=== PATIENT | female | born 1985 | race Caucasian/White ===

== ENCOUNTER 2019-05-21 13:13 | Outpatient (REF) | payer MEDICAID, SELFPAY ==
[2019-05-21 21:36] LABS: HCT 43.1 % (36.0-46.0); HGB 14.7 g/dL (12.0-15.5); Mean Corp. HGB Concentration 34.1 g/dL (32.0-36.0); Mean Corpuscular Hemoglobin 29.8 pg (27.0-33.0); Mean Corpuscular Volume 87.2 fL (80-95); Mean Platelet Volume 11.8 fL (8.0-11.0); Platelet Count 262 x1000/uL (130-400); RBC 4.94 m/cumm (4.00-5.20); White Blood Cell Count 5.69 k/cumm (4.4-10.8)
[2019-05-21 21:51] LABS: Hemoglobin A1C 5.4 % (4.5-6.2)
[2019-05-21 21:52] LABS: COMMENT (LAB VIEW ONLY) 103.12 mg/dL; Microalb ug/mg Crea 7.2 ug/mg Cr
[2019-05-21 21:59] LABS: ALT 22 U/L (14-59); AST 11 U/L (15-37); Albumin 3.8 g/dL (3.4-5.0); Alkaline Phosphatase 85 U/L (46-116); Anion Gap 12.2 mmol/L (3-11); BUN 10 mg/dL (7-18); Bilirubin, Total 0.3 mg/dL (0.2-1.0); CO2 23.8 mmol/L (21.0-32.0); CREATININE 0.88 mg/dL (0.55-1.02); Calcium 8.8 mg/dL (8.5-10.1); Calculated LDL 69 mg/dL; Chloride 107 mmol/L (98-107); Cholesterol 122 mg/dL (50-200); Glucose 96 mg/dL (70-100); HDL Cholesterol 36 mg/dL (40-60); Potassium 4.1 mmol/L (3.5-5.1); Sodium 143 mmol/L (136-145); Total Protein 6.9 g/dL (6.4-8.2); Triglyceride 89 mg/dL (30-150)
== END 2019-05-21 13:33 ==
LOC: NCHCN 13:13
PROVIDERS: PCP Nurse Practitioner Family; Visit Provider Nurse Practitioner Family
DX: I10 Essential (primary) hypertension (principal); R53.83 Other fatigue; G43.909 Migraine, unspecified, not intractable, without status migrainosus; E66.9 Obesity, unspecified; Z13.1 Encounter for screening for diabetes mellitus; Z13.220 Encounter for screening for lipoid disorders
CPT/HCPCS: 80053; 80061; 85027; 82043; 82570; 83036; 84443

== ENCOUNTER 2019-06-22 16:16 | Outpatient (REF) | payer MEDICAID, SELFPAY ==
[2019-06-22 21:33] LABS: Anion Gap 10.9 mmol/L (3-11); BUN 9 mg/dL (7-18); CO2 28.1 mmol/L (21.0-32.0); CREATININE 0.79 mg/dL (0.55-1.02); Calcium 9.3 mg/dL (8.5-10.1); Chloride 101 mmol/L (98-107); Glucose 74 mg/dL (70-100); Potassium 3.7 mmol/L (3.5-5.1); Sodium 140 mmol/L (136-145)
== END 2019-06-22 16:36 ==
LOC: NCHCN 16:16
PROVIDERS: PCP Nurse Practitioner Family; Visit Provider Nurse Practitioner Family
DX: R55 Syncope and collapse (principal); I10 Essential (primary) hypertension
CPT/HCPCS: 80048

== ENCOUNTER 2020-08-04 12:24 | Outpatient (REF) | payer SELFPAY ==
[2020-08-07 12:40] LABS: SARS-CoV-2 RNA Not Detected (NotDetected); SARS-CoV-2 RNA Source Nasal/Nares
== END 2020-08-04 12:44 ==
LOC: NCHCN 12:24
PROVIDERS: PCP Nurse Practitioner Family; Visit Provider Nurse Practitioner Family
DX: Z20.828 Contact with and (suspected) exposure to other viral communicable diseases (principal)
CPT/HCPCS: U0003

== ENCOUNTER 2021-04-18 16:13 | Outpatient (REF) | payer MEDICAID, SELFPAY ==
[2021-04-20 14:41] LABS: COVID-19 RT-PCR UVMMC Result Negative (Negative)
== END 2021-04-18 16:14 | disposition home or self-care (01) ==
LOC: NCHCN 16:13
PROVIDERS: PCP Nurse Practitioner Family; Visit Provider Nurse Practitioner Family
DX: Z20.822 Contact with and (suspected) exposure to COVID-19 (principal)
CPT/HCPCS: U0003

== ENCOUNTER 2021-10-15 14:44 | Outpatient (REF) | payer MEDICAID, SELFPAY ==
[2021-10-15 15:09] LABS: BUN 15 mg/dL (7-18); CREATININE 0.9 mg/dL (0.55-1.02); Calcium 8.8 mg/dL (8.5-10.1); Chloride 99 mmol/L (98-107); Glucose 81 mg/dL (74-106); Sodium 136 mmol/L (136-145)
[2021-10-15 15:14] LABS: Hemoglobin A1C 5.4 % (<5.7)
== END 2021-10-15 14:45 | disposition home or self-care (01) ==
LOC: NCHCN 14:44
PROVIDERS: PCP Nurse Practitioner Family; Visit Provider Nurse Practitioner Family
DX: I10 Essential (primary) hypertension (principal); E66.9 Obesity, unspecified; Z13.1 Encounter for screening for diabetes mellitus
CPT/HCPCS: 80048; 83036

== ENCOUNTER 2023-02-24 10:12 | Outpatient (REF) | payer MEDICAID, SELFPAY ==
[2023-02-24 16:03] LABS: BUN 12 mg/dL (7-18); CREATININE 0.9 mg/dL (0.55-1.02); Calcium 8.9 mg/dL (8.5-10.1); Calculated LDL 76 mg/dL (<100); Chloride 104 mmol/L (98-107); Cholesterol 141 mg/dL (<200); Glucose 84 mg/dL (74-106); HDL Cholesterol 53 mg/dL (40-60); Potassium 3.9 mmol/L (3.5-5.1); Sodium 139 mmol/L (136-145); Triglyceride 64 mg/dL (<150)
[2023-02-24 16:05] LABS: Hemoglobin A1C 5.1 % (<5.7)
[2023-02-26 09:54] LABS: Hepatitis C Ab w Rflx HCV PCR Negative (Negative)
== END 2023-02-24 10:13 | disposition home or self-care (01) ==
LOC: NCHCN 10:12
PROVIDERS: PCP Nurse Practitioner Family; Visit Provider Nurse Practitioner Family
DX: I10 Essential (primary) hypertension (principal); F32.89 Other specified depressive episodes; G43.009 Migraine without aura, not intractable, without status migrainosus; B00.89 Other herpesviral infection; Z11.59 Encounter for screening for other viral diseases; Z13.1 Encounter for screening for diabetes mellitus
CPT/HCPCS: 80048; 80061; 86803; 83036

== ENCOUNTER 2024-05-25 01:18 | Outpatient (CLI) | payer OTHER, MEDICAID, SELFPAY ==
--- NOTE | 2024-05-25 | DI.MAMMO_ITS ---
Exam(s) MAMMO SCREENING EXAM: MAMMO SCREENING CLINICAL HISTORY: Z12.39 Breast CA screening TECHNIQUE: Bilateral full field digital CC and MLO mammographic images were obtained with 3D tomosyn thesis and utilizing computer aided detection (CAD). COMPARISON: Available for comparison. FINDINGS: Masses/Architectural Distortion: None seen. Microcalcifications: No suspicious pleomorphic-type are seen. Skin Thickening/Nipple Retraction: None. IMPRESSION: 1. No significant interval change with no specific features of malignancy noted. 2. Unless there is more urgent need, screening mammography is recommended, as per [employer] guidelines. BI-RADS Category 1 - Negative Breast Density - Category C - Heterogeneously dense Breast density category C or D implies that the patient has dense breast tissue. Dense breast tissue is very common and is not abnormal but dense breast tissue can make it harder to find cancer on a ma mmogram. Also, dense breast tissue may increase their breast cancer risk. This information about the result of the mammogram report was provided to the patient to raise their awareness. Use this report when you speak with the patient about their risks for breast cancer, which includes their family hist ory. At that time, you may recommend for more screening tests (Ultrasound or MRI) as they might be us eful based on their risk. A negative radiographic report should not delay biopsy if a dominant or clinically suspicious mass is present. Up to ten percent of cancers are not identified on mammography. A negative report may reinforce clinical impression. Adenosis and dense breasts may obscure an underlying neoplasm. False positive reports average 6 to 10%. Patient will receive a letter notifying them of these results.
== END 2024-05-25 01:38 ==
PROVIDERS: PCP Nurse Practitioner Family; Visit Provider Nurse Practitioner Family
DX: Z12.31 Encounter for screening mammogram for malignant neoplasm of breast (principal)
CPT/HCPCS: 77063; 77067

== ENCOUNTER 2024-06-08 14:40 | Outpatient (REF) | payer OTHER, MEDICAID, SELFPAY ==
--- OUTSIDE RECORDS SUMMARY | 2024-06-08 14:41 | XMS_ITS ---
Author Organization Unknown Address [address] [place] [address] [phone] Phone Care Team Providers Care Legal Records Manager Name Role Phone GLOSS SELENE Moise Attending Unavailable Results CHLAMYDIA/GC AMPLIFIED PROBE * - Collect Date/Time: 09/19/2021 11:45 [facility] ID: [id number] [address] [place] [address], [id number] LOINC: 36656-0 Test Value Unit Reference Range Code Code System Flag Chlamydia Result Negative Negative GC Result Negative Negative HEP C ANTIBODY WITH REFLEX P CR - Collect Date/Time: 09/19/2021 10:05 [facility] ID: [id number] [address] [place] [address], [id number] LOINC: 38878-3 Test Value Unit Reference Range Code Code System Flag Hep C Ab w Rfx PCR Negative Negative HEP B SURF ANTIGEN* - Collec t Date/Time: 09/19/2021 10:05 [facility] ID: [id number] [address] [place] [address], [id number] LOINC: 5196-1 Test Value Unit Reference Range Code Code System Flag Hep B Surface Ag Negative Negative Social History Type Status Start Date End Date Code Code Syst em Smoking History Former smoker 09/22/[id number] Sex Female Hospital Discharge Instructions Should you have any questions prior to discharge, please contact a member of your healthcare team. If you have left the hospital and have any questions, please contact your primary care physician. Reason For Referral No Data Found Allergies and Adverse Reactions Allergy Substance Reaction Severity Start Date Concern Status Co de Code System No Known Allergies Moderate Active [id number] SN OMED-CT Plan of Treatment No Data Found Encounters Encounter Diagnosis Start Date Code Code Sys tem Encounter for screening for infections with a predominantly sexual mode of transmission 09/19/2021 SNOMED-CT Personal Care Team Section Performer Name Performer Role Active Date Inactive Da te
--- OUTSIDE RECORDS SUMMARY | 2024-06-08 14:42 | XMS_ITS ---
Author Organization Unknown Address [address] [place] [address] [phone] Phone Care Team Providers Care Credit Control Assistant Name Role Phone EDER Bethea Attending Unavailable Results HEP C ANTIBODY WITH REFLEX P CR - Collect Date/Time: 03/19/2023 09:45 [facility] ID: [id number] [address] [place] [address], [phone] LOINC: 51161-6 Test Value Unit Reference Range Code Code System Flag Hep C Ab w Rfx PCR Negative Negative HEP B SURF ANTIGEN* - Collec t Date/Time: 03/19/2023 09:45 [facility] ID: [id number] [address] [place] [address], [id number] LOINC: 5196-1 Test Value Unit Reference Range Code Code System Flag Hep B Surface Ag Negative Negative SYPHILIS SEROLOGY* - Collect Date/Time: 03/19/2023 09:45 [facility] ID: [id number] [address] [place] [address], [id number] LOINC: 80810-4 Test Value Unit Reference Range Code Code System Flag Syphilis Serology Negative Negative HIV 1/2 ANTIGEN AND ANTIBODY SCREEN - Collect Date/Time: 03/19/2023 09:45 [facility] ID: [id number] [address] [place] [address], [id number] LOINC: 05300-6 Test Value Unit Reference Range Code Code System Flag HIV 1/2 Antigen andAntibody Negative Negative Social History Type Status Start Date End Date Code Code Syst em Smoking History Former smoker 09/22/[id number] Sex Female Hospital Discharge Instructions [...] Code System No Known Allergies Moderate Active 199001148 SN OMED-CT Plan of Treatment No Data Found Encounters Encounter Diagnosis Start Date Code Code Sys tem Venereal disease screening 03/19/2023 [id number] S NOMED-CT Personal Care Team Section Performer Name Performer Role Active Date Inactive Da te
--- OUTSIDE RECORDS SUMMARY | 2024-06-08 14:42 | XMS_ITS ---
Author Organization Unknown Address [address] [place] [address] [phone] Phone Care Team Providers Care Bike Assembler Name Role Phone DECEMBER Attending Unavailable Results SYPHILIS SEROLOGY* - Collect Date/Time: 11/14/2022 14:52 [facility] ID: [id number] [address] [place] [address], [id number] LOINC: 95410-0 Test Value Unit Reference Range Code Code System Flag Syphilis Serology Negative Negative HEP C ANTIBODY WITH REFLEX P CR - Collect Date/Time: 11/14/2022 14:52 [facility] ID: [id number] [address] [place] [address], [id number] LOINC: 44848-8 Test Value Unit Reference Range Code Code System Flag Hep C Ab w Rfx PCR Negative Negative HEP B SURF ANTIGEN* - Collec t Date/Time: 11/14/2022 14:52 [facility] ID: [id number] [address] [place] [address], [id number] LOINC: 5196-1 Test Value Unit Reference Range Code Code System Flag Hep B Surface Ag Negative Negative HIV 1/2 ANTIGEN AND ANTIBODY SCREEN - Collect Date/Time: 11/14/2022 14:52 [facility] ID: [id number] [address] [place] [address], [id number] LOINC: 56062-7 Test Value Unit Reference Range Code Code System Flag HIV 1/2 Antigen andAntibody Negative Negative HERPES SIMPLEX VIRUS BY PCR* - Collect Date/Time: 11/14/2022 14:45 [facility] ID: [id number] [address], [place], [id number] LOINC: 35760-7 Test Value Unit Reference Range Code Code System Flag HSV 1 DNA Result Negative Negative 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 A CHLAMYDIA/GC AMPLIFIED PROBE * - Collect Date/Time: 11/14/2022 14:45 [facility] ID: [id number] [address], [place], [phone] LOINC: 14728-3 Test Value Unit Reference Range Code Code System Flag Chlamydia Result Negative Negative GC Result Negative Negative Social History Type Status Start Date End Date Code Code Syst em Smoking History Former smoker 09/22/[id number] Sex Female Hospital Discharge Instructions [...] Code System No Known Allergies Moderate Active 475926952 SN OMED-CT Plan of Treatment No Data Found Encounters Encounter Diagnosis Start Date Code Code Sys tem Encounter for screening for infections with a predominantly sexual mode of transmission 11/14/2022 SNOMED-CT Personal Care Team Section Performer Name Performer Role Active Date Inactive Da te
--- OUTSIDE RECORDS SUMMARY | 2024-06-08 14:42 | XMS_ITS | Referral Summary ---
Author Organization [facility] Address [address] [place] [address] Care Team Providers Care Fourdrinier Machine Tender Name Role Phone Marcy Hines MD Primary Care Provider Social History Tobacco Use Types Packs/Day Years Used Date Smoking Tobacco: Never Assessed Sex and Gender Information Value Date Recorded Sex Assigned at Not on file Gender Identity Not on file Sexual Orientation Not on file Plan of Treatment Not on file Procedures Procedure Name Priority Date/Time Associated Diagnosis Comments HEPATITIS C AB W REFLEX TO HCV RNA BY PCR Routine 03/19/2023 9:45 EDT from Last 3 Months or Most Recently Relevant to Health Maintenance Results * HEPATITIS C AB W REFLEX TO HCV RNA BY PCR (03/19/2023 9:45 EDT) Hep C Antibody Negative Negative 03/20/2023 11:53 EDT [facility] Blood VENOUS BLOOD / Unknown 03/19/2023 9:45 EDT 03/19/2023 17:25 EDT Provider Outr Resulting Lab CHEMISTRY & BLOOD GAS ORDERABLES [facility] [address] [place] [address] from Last 3 Months or Most Recently Relevant to Health Maintenance Care Teams Fourdrinier Machine Tender Relationship Specialty Start Date End Date Marcy Hines MD PCP - General 03/03/12
--- OUTSIDE RECORDS SUMMARY | 2024-06-08 14:42 | XMS_ITS ---
Author Organization Unknown Address [address] [place] [address] [phone] Phone Care Team Providers Care Torpedo Man Name Role Phone ANAY Moise Attending Unavailable Social History Type Status Start Date End Date Code Code Syst em Smoking History Former smoker 09/22/[id number] Sex Female Hospital Discharge Instructions [...] Code System No Known Allergies Moderate Active 279000829 SN OMED-CT Plan of Treatment No Data Found Encounters Encounter Diagnosis Start Date Code Code Sys tem Gynecologic examination 05/17/2024 87597960 SNOM ED-CT Personal Care Team Section Performer Name Performer Role Active Date Inactive Da te
--- OUTSIDE RECORDS SUMMARY | 2024-06-08 14:42 | XMS_ITS | Clinical Summary ---
Author Organization [facility] Address [address] [place] [address] Care Team Providers Care Oyster Grower Name Role Phone Marcy Hines MD Primary Care Provider [phone] Social History Tobacco Use Types Packs/Day Years Used Date Smoking Tobacco: Never Assessed Sex and Gender Information Value Date Recorded Sex Assigned at Not on file Gender Identity Not on file Sexual Orientation Not on file Plan of Treatment Health Maintenance Due Date Last Done Comments Hepatitis B Vaccine (1 of 3 - 19+ 3-dose series) 2002 COVID-19 Vaccine (2022-2 4 season) 2023 Hepatitis C Screen Completed 03/19/2023, 0 02/24/2023, 11/14/2022, Additional history exists Procedures Procedure Name Priority Date/Time Associated Diagnosis Comments HEPATITIS C AB W REFLEX TO HCV RNA BY PCR Routine 03/19/2023 9:45 EDT from Last 3 Months or Most Recently Relevant to Health Maintenance Results * HEPATITIS C AB W REFLEX TO HCV RNA BY PCR (03/19/2023 9:45 EDT) Hep C Antibody Negative Negative 03/20/2023 11:53 EDT [facility] Blood VENOUS BLOOD / Unknown 03/19/2023 9:45 EDT 03/19/2023 17:25 EDT Provider Outr Resulting Lab CHEMISTRY & BLOOD GAS ORDERABLES [facility] [address] [place] [address] from Last 3 Months or Most Recently Relevant to Health Maintenance Care Teams Oyster Grower Relationship Specialty Start Date End Date Marcy Hines MD PCP - General 03/03/12
--- OUTSIDE RECORDS SUMMARY | 2024-06-08 14:43 | XMS_ITS | Encounter Summary ---
Author Organization [facility] Address [address] [place] [address] Care Team Providers Care Elementary Vocal Music Teacher Name Role Phone Marcy Hines MD Primary Care Provider [phone] Encounter Details Date Type Department Care Team (Late st Contact Info) Description 03/19/2023 Lab Requisition [facility] Pathology & Laboratory Medicine - [address] [address] Outr Resulting Lab, Provider Social History Tobacco Use Types Packs/Day Years Used Date Smoking Tobacco: Never Assessed Sex and Gender Information Value Date Recorded Sex Assigned at Not on file Gender Identity Not on file Sexual Orientation Not on file documented as of this encounter Plan of Treatment Not on file documented as of this encounter Procedures Procedure Name Priority Date/Time Associated Diagnosis Comments CHLAMYDIA/N. GONORRHOEAE AMPLIFIED NUCLEIC ACID Routine 03/19/2023 9:45 EDT documented in this encounter Results * CHLAMYDIA/N. GONORRHOEAE AMPLIFIED RNA (03/19/2023 9:45 EDT) Neisseria gonorrhoeae Result Negative Negative 03/20/2023 12:12 EDT [facility] Chlamydia trachomatis Result Negative Negative 03/20/2023 12:12 EDT [facility] Urine URINE / Unknown 03/19/2023 9 :45 EDT 03/19/2023 17:23 EDT Narrative [facility] - 03/20/2023 12:12 EDT A first catch urine specimen is acceptable for detection of Gonorrhea and Chlamydia, but might detect up to 10% fewer infections when compared with vaginal and endocervical swab samples. Provider Outr Resulting Lab MICROBIOLOGY - GENERAL ORDERABLES [facility] [address] [place] [address] documented in this encounter Visit Diagnoses Not on filedocumented in this encounter Care Teams Elementary Vocal Music Teacher Relationship Specialty Start Date End Date Marcy Hines MD PCP - General 03/03/12 documented as of this encounter
--- OUTSIDE RECORDS SUMMARY | 2024-06-08 14:43 | XMS_ITS | Encounter Summary ---
Author Organization [facility] Address [address] [place] [address] Care Team Providers Care Special Education Teacher Name Role Phone Marcy Hines MD Primary Care Provider [phone] Encounter Details Date Type Department Care Team (Late st Contact Info) Description 04/19/2021 Lab Requisition [facility] Pathology & Laboratory Medicine - [facility] [address] [place], [place] [address] Outr Resulting Lab, Provider Social History Tobacco [...] Procedure Name Priority Date/Time Associated Diagnosis Comments ZZCOVID-19 TEST [facility] LAB PCR Today 04/18/2021 10:25 EDT COVID-19 TESTING Routine 04/18/2021 10:2 5 EDT documented in this encounter Results * COVID-19 TEST [facility] LAB PCR (04/18/2021 10:25 EDT) Swab ENTIRE NASOPHARYNX / Unknown 04/18/2021 10:25 EDT 04/19/2021 15:39 EDT Provider Outr Resulting Lab MICROBIOLOGY - GENERAL ORDERABLES [facility] [address] [place] [address] * COVID-19 TESTING (04/18/2021 10:25 EDT) COVID-19 rt-PCR Result Negative Negative 04/20/2021 14:36 EDT [facility] Comment: This test has not been FDA cleared or approved. This test has been authorized by FDA under an EUA for use by authorized laboratories. This test has been authorized only for detection of nucleic acid from 2019-nCoV, not for any other viruses or pathogens. This test is only authorized for the duration of the declaration that circumstances exist justifying the authorization of emergency use of in vitro diagnostic tests for detection and/or diagnosis of 2019-nCoV under section 564(b)(1) of Act, 21 U.S.C ?? 360bbb-3(b) (1), unless the authorization is terminated or revoked sooner. Negative results do not preclude 2019-nCoV infection and should not be used as the sole basis for treatment or other patient management decisions. Negative results must be combined with clinical observations, patient history, and epidemiological information. Testing was performed using the ag SARS-CoV-2 assay ([employer] on the Ag 6800 System Performing Lab Ag 6800 [facility] Lab 04/20/2021 14:36 EDT [facility] Swab 04/18/2021 10:2 5 EDT 04/19/2021 15:39 EDT Provider Outr Resulting Lab MICROBIOLOGY - GENERAL ORDERABLES [facility] [address] [place] [address] documented in this encounter Visit Diagnoses Not on filedocumented in this encounter Care Teams Special Education Teacher Relationship Specialty Start Date End Date Marcy Hines MD PCP - General 03/03/12 documented as of this encounter
--- OUTSIDE RECORDS SUMMARY | 2024-06-08 14:43 | XMS_ITS | Encounter Summary ---
Author Organization Health system Address [address] [place] [address] Care Team Providers Care Operating System Designer Name Role Phone Unavailable Primary Care Provider Unavailabl e Encounter Details Date Type Department Care Team (Late st Contact Info) Description 02/13/2004 Results Only [facility] - Maple conversion [address] [place] [address] Kristen Llanes CNM [address] [place] [address],[address] [place] [address] [phone] Social History Tobacco Use Types Packs/Day Years Used Date Smoking Tobacco: Never Assessed Sex and Gender Information Value Date Recorded Sex Assigned at Not on file Gender Identity Not on file Sexual Orientation Not on file documented as of this encounter Plan of Treatment Not on file documented as of this encounter Procedures Procedure Name Priority Date/Time Associated Diagnosis Comments HPV DETECTION, HIGH RISK TYPES Routine 02/13/2004 11:15 EDT documented in this encounter Results * HUMAN PAPILLOMA VIRUS DNA TEST (02/13/2004 11:15 EDT) Specimen Description Cervix, ThinPrep vial [facility] Result Negative for HPV types 16, 18, 31, 33, 35, 39, 45, 51, 52, 56, 58, 59, and 68. [facility] Report Status Final [id number] [facility] 02/13/2004 11:1 5 EDT 02/23/2004 11:15 EDT Kristen Llanes CNM MICROBIOLOGY - GENER AL ORDERABLES [facility] [address] [place] [address] documented in this encounter Visit Diagnoses Not on filedocumented in this encounter
--- OUTSIDE RECORDS SUMMARY | 2024-06-08 14:43 | XMS_ITS | Encounter Summary ---
Author Organization [facility] Address [address] [place] [address] Care Team Providers Care Ethologist Name Role Phone Marcy Hines MD Primary Care Provider [phone] Encounter Details Date Type Department Care Team (Late st Contact Info) Description 11/14/2022 Lab Requisition [facility] Pathology & Laboratory Medicine - [address] [address] Outr Resulting Lab, Provider Social History Tobacco [...] Procedure Name Priority Date/Time Associated Diagnosis Comments SYPHILIS SEROLOGY Routine 11/14/2022 14: 52 EST documented in this encounter Results * SYPHILIS SEROLOGY (11/14/2022 14:52 EST) Syphilis Serology Negative Negative 11/15/2022 11:03 EST [facility] Blood VENOUS BLOOD / Unknown 11/14/2022 14:52 EST 11/14/2022 22:08 EST Provider Outr Resulting Lab IMMUNOLOGY A ND SEROLOGY ORDERABLES [facility] [address] [place] [address] documented in this encounter Visit Diagnoses Not on filedocumented in this encounter Care Teams Ethologist Relationship Specialty Start Date End Date Marcy Hines MD PCP - General 03/03/12 documented as of this encounter
--- OUTSIDE RECORDS SUMMARY | 2024-06-08 14:43 | XMS_ITS | Clinical Summary ---
Author Organization [facility] [place] [address] [place] [address] Care Team Providers Care Tester Armature Or Fields Name Role Phone Unavailable Primary Care Provider Unavailabl e Social History Tobacco Use Types Packs/Day Years Used Date Smoking Tobacco: Never Assessed Sex and Gender Information Value Date Recorded Sex Assigned at Not on file Gender Identity Not on file Sexual Orientation Not on file Plan of Treatment Health Maintenance Due Date Last Done Comments HIV screen 2001 Hepatitis C Screening 2001 Hepatitis B vaccine (0-59 yrs) (1) 2002 Tdap adult 2002 Tetanus vaccine 2002 HPV test 2013 PAP Smear 2013 Breast Cancer Share Decision Needed 2023 Breast Cancer screening 2023 Covid-19 Vaccine ( season) 2024 Influenza (Flu) vaccine (1 o f 1 - Influenza standard series) 05/23/2024
--- OUTSIDE RECORDS SUMMARY | 2024-06-08 14:43 | XMS_ITS | Encounter Summary ---
[facility] Organization [facility] Address [facility] [place] [address] Care Team Providers Care Veneer Gluer Name Role Phone Unavailable Primary Care Provider Unavailabl e Encounter Details Date Type Department Care Team (Latest Contact Info) Description 08/04/2020 8:39 PM EST - 08/04/2020 11:59 PM EST Hospital [place] [address] Discharge Disposition: Home Social History Tobacco Use Types Packs/Day Years Used Date Smoking Tobacco: Never Assessed Sex and Gender Information Value Date Recorded Sex Assigned at Not on file Gender Identity Not on file Sexual Orientation Not on file documented as of this encounter Plan of Treatment Not on file documented as of this encounter Procedures Procedure Name Priority Date/Time Associated Diagnosis Comments COVID-19 PCR Routine 08/04/2020 1:30 PM EST documented in this encounter Results * COVID-19 PCR (08/04/2020 1:30 PM EST) SARS-CoV-2 RNA Not Detected Not Detected [facility] Comment: This result should be interpreted in combination with the clinical observations, patient history and epidemiological information in making a final diagnosis. For testing of asymptomatic individuals, assay performance characteristics and clinical utility have not been evaluated. Testing for SARS-CoV-2 (Severe acute respiratory syndrome coronavirus 2, formerly known as 2019 novel coronavirus or 2019-nCoV) to aid in the diagnosis of COVID-19 is performed using the [employer] m SARS-CoV-2 Assay as authorized by the FDA Emergency Use Authorization (EUA). This EUA assay is intended for In-vitro Diagnostic (IVD) use with respiratory specimens such as nasopharyngeal swabs collected from individuals during the acute phase of infection. This assay is performed based on the instructions for use provided by [employer] and additional guidance provided by CDC and FDA. Testing is performed in the [facility] within the Department of Pathology and Laboratory Medicine at [facility], certified under the Clinical Laboratory Improvement Amendments of 1988 (CLIA), 42 U.S.C. 263a, to perform high complexity tests. Assay performance has been verified according to clinical laboratory regulatory requirements for use with specimens collected from individuals suspected of COVID-19. Test results are provided above. A result of ? Not Detected? indicates that the viral RNA target is not present above the limit of detection, but does not preclude SARS-CoV-2 infection. False negative results may occur if a specimen is improperly collected, transported or handled; if amplification inhibitors are present; or if inadequate numbers of viral particles are present in the specimen. When a diagnostic test is negative, the possibility of a false negative result should be considered in the context of a patient? s recent exposures and the presence of clinical signs and symptoms consistent with COVID-19. A result of ? Detected? indicates that RNA from SARS-CoV-2 was detected and the patient is infected. As required or requested by public health authorities, positive specimens may be sent for additional testing. Positive and negative predictive values for this test are highly dependent on disease prevalence. A result of ? Invalid? indicates that neither the viral RNA targets nor the internal control target was detected. An invalid result suggests the presence of inhibitors. Recollection and re-testing is recommended in the case of an invalid result. CDC COVID-19 criteria for testing on human specimens and clinical management guidance information are available at the CDC Coronavirus Disease 2019 (COVID-19) webpage under ? Information for Healthcare Professionals? (https://www.cdc.gov/coronavirus/2019-ncov/hcp/index.html) Additional information about this and other EUA tests can be found in provider and patient fact sheets at the following FDA website: https://www.fda.gov/medical-devices/insyjsdesam-oayqism-9409-yyzvi-22-lsrgfkiqt- use-a khqprwzmjvnwx-tfjcmgq-mbxyqqm/jgeta-nwmjuuvoadz-wptc SARS-CoV-2 RNA Source Other [facility] Specimen of unknown material (specimen) Other / Unknown 08/04/2020 1:30 PM EST 08/06/2020 7:39 AM EST Narrative Resulting Agency Comment Spec In Lab Cecily Elizalde ACCELERATOR OPERATOR MOLECULAR ORDERABLE S Performing Organization Address City/State/[facility] Co de Phone Number [facility] [place] [address] documented in this encounter Visit Diagnoses Not on filedocumented in this encounter
--- OUTSIDE RECORDS SUMMARY | 2024-06-08 14:43 | XMS_ITS | Encounter Summary ---
Author Organization [facility] Address [address] [place] [address] Care Team Providers Care Housekeeping Aid Name Role Phone Marcy Hines MD Primary Care Provider [phone] Encounter Details Date Type Department Care Team (Late st Contact Info) Description 03/02/2012 Results Only [facility] Laboratory Services - [facility] ([facility]) [address] [place], [place] [id number] Kristen Llanes CNM [address] [place] [address],[address] [place] [address] Social History Tobacco Use Types Packs/Day Years Used Date Smoking Tobacco: Never Assessed Sex and Gender Information Value Date Recorded Sex Assigned at Not on file Gender Identity Not on file Sexual Orientation Not on file documented as of this encounter Plan of Treatment Not on file documented as of this encounter Procedures Procedure Name Priority Date/Time Associated Diagnosis Comments PAP TEST- RESULT ONLY Routine 03/02/2012 0:00 EDT documented in this encounter Results * PAP TEST- RESULT ONLY (03/02/2012 0:00 EDT) Pathology Report: CYTOPATHOLOGY REPORT Reports generated via electronic interface contain original data; however they are lacking the format of the original report. Caution should be taken when reading/interpreti ng unformatted reports. Name: ? MARCIO REBECA ? Accession #: ? [id number] : ? 1985 (Age: 26) ??F ?Collect Date: ? 03/02/2012 Location: ? [facility] ? Receive Date: ? 03/04/2012 Provider: ?KRISTEN MOI GAYATHRI Copy to: ? Specimen/Source: ?Pap Test, Cervix/Endocervix, ThinPrep Imaging System with manual evaluation Last Menstrual Period: ? n/a Hormonal/Contracep tive Status: ? Yes: Mirena Previous Gynecologic Pathology: ? Yes: Abn pap in past-no tx ? SPECIMEN ADEQUACY ? Satisfactory for Evaluation - transformation zone component present GENERAL CATEGORIZATION ? Negative for Intraepithelial Lesion or Malignancy ? Document reviewed and electronically signed by: ? Gerry Conrad, NICOLE(ASCP) ? Report Date: ??03/05/2012 12:55 End of Report JANETH CRUZ 03/02/2012 03/04/2012 Kristen Llanes CNM PATHOLOGY ORDERABLES Performing Organization Address City/State/[facility] Co de Phone Number JANETH CRUZ [address] [place] [address] documented in this encounter Visit Diagnoses Not on filedocumented in this encounter Care Teams Housekeeping Aid Relationship Specialty Start Date End Date Marcy Hines MD PCP - General 03/03/12 documented as of this encounter
--- OUTSIDE RECORDS SUMMARY | 2024-06-08 14:43 | XMS_ITS | Encounter Summary ---
Author Organization [facility] Address [address] [place] [address] Care Team Providers Care Food Safety Specialist Name Role Phone Unavailable Primary Care Provider Unavailabl e Encounter Details Date Type Department Care Team (Late st Contact Info) Description 11/05/2004 Results Only [facility] - Maple conversion [address] [place] [address] Natali Alcala, [address] [place], [place] [id number] Social History Tobacco Use Types Packs/Day Years Used Date Smoking Tobacco: Never Assessed Sex and Gender Information Value Date Recorded Sex Assigned at Not on file Gender Identity Not on file Sexual Orientation Not on file documented as of this encounter Plan of Treatment Not on file documented as of this encounter Procedures Procedure Name Priority Date/Time Associated Diagnosis Comments CYTOPATHOLOGY Routine 11/05/2004 0:00 EST documented in this encounter Results * CYTOPATHOLOGY (11/05/2004 0:00 EST) Pathology Report: CYTOPATHOLOGY REPORT Reports generated via electronic interface contain original data; however they are lacking the format of the original report. Caution should be taken when reading/interpreti ng unformatted reports. Name: ? REBECA BUCKLEY ? Accession #: ? [id number] : ? 1985 (Age: 19) ??F ?Collect Date: ? 11/05/2004 Location: ? [facility] ? Receive Date: ? 11/07/2004 Provider: ?NATALI ALCALA CNM Copy to: ? Specimen/Source: ?ThinPrep Pap Test, Cervix/Endocervix Last Menstrual Period: ? 12/10/03 Menstrual/Pregnanc y Status: ? Post Hormonal/Contracep tive Status: ? Yes: Micronor Other: ? HPVA - HPV testing requested if ASC-US on the current ThinPrep Pap test. ? SPECIMEN ADEQUACY ? Satisfactory for Evaluation - transformation zone component present GENERAL CATEGORIZATION ? Negative for Intraepithelial Lesion or Malignancy ? Document reviewed and electronically signed by: ? NICOLE Barreto(ASCP) ? Report Date: ??11/09/2004 13:25 End of Report JANETH CRUZ 11/05/2004 11/07/2004 Natali Alcala CNM PATHOLOGY ORDERABLES Performing Organization Address City/State/[facility] Co de Phone Number JANETH CRUZ [address] [place] [address] documented in this encounter Visit Diagnoses Not on filedocumented in this encounter
--- OUTSIDE RECORDS SUMMARY | 2024-06-08 14:43 | XMS_ITS | Encounter Summary ---
Author Organization [facility] Address [address] [place] [address] Care Team Providers Care Web Producer Name Role Phone Marcy Hines MD Primary Care Provider [phone] Encounter Details Date Type Department Care Team (Late st Contact Info) Description 03/19/2023 Lab Requisition [facility] Pathology & Laboratory Medicine - [address] [address] Outr Resulting Lab, Provider Social History Tobacco [...] RNA BY PCR Routine 03/19/2023 9:45 EDT documented in this encounter Results * HEPATITIS C AB W REFLEX TO HCV RNA BY PCR (03/19/2023 9:45 EDT) Hep C Antibody Negative Negative 03/20/2023 11:53 EDT [facility] Blood VENOUS BLOOD / Unknown 03/19/2023 9:45 EDT 03/19/2023 17:25 EDT Provider Outr Resulting Lab CHEMISTRY & BLOOD GAS ORDERABLES [facility] [address] [place] [address] documented in this encounter Visit Diagnoses Not on filedocumented in this encounter Care Teams Web Producer Relationship Specialty Start Date End Date Marcy Hines MD PCP - General 03/03/12 documented as of this encounter
--- OUTSIDE RECORDS SUMMARY | 2024-06-08 14:43 | XMS_ITS | Encounter Summary ---
Author Organization [facility] Address [address] [place] [address] Care Team Providers Care Jammer Hooker Name Role Phone Marcy Hines MD Primary Care Provider [phone] Encounter Details Date Type Department Care Team (Late st Contact Info) Description 03/19/2023 Lab Requisition [facility] Pathology & Laboratory Medicine - [address] [phone] Outr Resulting Lab, Provider Social History Tobacco [...] Procedure Name Priority Date/Time Associated Diagnosis Comments HIV 1/2 ANTIGEN AND ANTIBODY, 4TH GENERATION Routine 03/19/2023 9:45 EDT documented in this encounter Results * HIV 1/2 ANTIGEN AND ANTIBODY, 4TH GENERATION (03/19/2023 9:45 EDT) HIV 1 and 2 Antibody/p24 Antigen, 4th Generation Negative Negative 03/20/2023 10:[address] [facility] Comment:If acute HIV-1 infec tion is suspected in a high risk patient, submit plasma specimen for HIV-1 RNA quantitation test. Blood VENOUS BLOOD / Unknown 03/19/2023 9:45 EDT 03/19/2023 17:24 EDT [address]arrative [facility] - 03/20/2023 10:34 EDT Fourth Generation assay performed on the Siemens Centaur XPT. Provider Outr Resulting Lab IMMUNOLOGY A ND SEROLOGY ORDERABLES [facility] [address] [place] [address] documented in this encounter Visit Diagnoses Not on filedocumented in this encounter Care Teams Jammer Hooker Relationship Specialty Start Date End Date Marcy Hines MD PCP - General 03/03/12 documented as of this encounter
--- OUTSIDE RECORDS SUMMARY | 2024-06-08 14:43 | XMS_ITS | Encounter Summary ---
Author Organization [facility] Address [address] [place] [address] Care Team Providers Care Forest Fire Fighter Name Role Phone Marcy Hines MD Primary Care Provider [phone] Encounter Details Date Type Department Care Team (Late st Contact Info) Description 11/14/2022 Lab Requisition [facility] Pathology & Laboratory Medicine - [address] [address] Outr Resulting Lab, Provider Social History Tobacco [...] 1/2 ANTIGEN AND ANTIBODY, 4TH GENERATION Routine 11/14/2022 14:52 EST documented in this encounter Results * HIV 1/2 ANTIGEN AND ANTIBODY, 4TH GENERATION (11/14/2022 14:52 EST) HIV 1 and 2 Antibody/p24 Antigen, 4th Generation Negative Negative 11/15/2022 10:39 EST [facility] Comment:If acute HIV-1 infec tion is suspected in a high risk patient, submit plasma specimen for HIV-1 RNA quantitation test. Blood VENOUS BLOOD / Unknown 11/14/2022 14:52 EST 11/14/2022 22:09 EST Narrative [facility] - 11/15/2022 10:39 EST Fourth Generation assay performed on the Siemens TVTYaur XPT. Provider Outr Resulting Lab IMMUNOLOGY A ND SEROLOGY ORDERABLES [facility] [address] [place] [address] documented in this encounter Visit Diagnoses Not on filedocumented in this encounter Care Teams Forest Fire Fighter Relationship Specialty Start Date End Date Marcy Hines MD PCP - General 03/03/12 documented as of this encounter
--- OUTSIDE RECORDS SUMMARY | 2024-06-08 14:43 | XMS_ITS | Encounter Summary ---
Author Organization [facility] Address [address] [place] [address] Care Team Providers Care National Park Ranger Name Role Phone Marcy Hines MD Primary Care Provider [phone] Encounter Details Date Type Department Care Team (Late st Contact Info) Description 09/19/2021 Lab Requisition [facility] Pathology & Laboratory Medicine - [address] [address] Outr Resulting Lab, Provider Social History Tobacco [...] REFLEX TO HCV RNA BY PCR Routine 09/19/2021 10:05 EST documented in this encounter Results * HEPATITIS C AB W REFLEX TO HCV RNA BY PCR (09/19/2021 10:05 EST) Hep C Antibody Negative Negative 09/20/2021 9:22 EST [facility] Blood VENOUS BLOOD / Unknown 09/19/2021 10:05 EST 09/19/2021 20:49 EST Provider Outr Resulting Lab CHEMISTRY & BLOOD GAS ORDERABLES [facility] [address] [place] [address] documented in this encounter Visit Diagnoses Not on filedocumented in this encounter Care Teams National Park Ranger Relationship Specialty Start Date End Date Marcy Hines MD PCP - General 03/03/12 documented as of this encounter
--- OUTSIDE RECORDS SUMMARY | 2024-06-08 14:43 | XMS_ITS | Encounter Summary ---
Author Organization [facility] Address [address] [place] [address] Care Team Providers Care Finishing Operator Name Role Phone Unavailable Primary Care Provider Unavailabl e Encounter Details Date Type Department Care Team (Late st Contact Info) Description 09/05/2008 Before PRISM Converted Visit (Maple) [facility] - Maple conversion [address] [place] [address] Kristen Prater CNM [address] [place] [address],[address] [place] [id number] Social History Tobacco Use Types Packs/Day Years Used Date Smoking Tobacco: Never Assessed Sex and Gender Information Value Date Recorded Sex Assigned at Not on file Gender Identity Not on file Sexual Orientation Not on file documented as of this encounter Plan of Treatment Not on file documented as of this encounter Procedures Procedure Name Priority Date/Time Associated Diagnosis Comments CYTOPATHOLOGY Routine 09/05/2008 0:00 EST documented in this encounter Results * CYTOPATHOLOGY (09/05/2008 0:00 EST) Pathology Report: CYTOPATHOLOGY REPORT ? Reports generated via electronic interface contain original data; ? however they are lacking the format of the original report. ? Caution should be taken when reading/interpreti ng unformatted reports. ? Name: ? REBECA BUCKLEY ? Accession #: ? [id number] ? : ? 1985 (Age: 23) ??F ?Collect Date: ? 09/05/2008 ? Location: ? [facility] ? Receive Date: ? 09/07/2008 ? Provider: ?KRISTEN PRATER CNM ? Copy to: ? Specimen/Source: ?Pap Test, Cervix/Endocervix, ThinPrep Imaging System ? with manual evaluation ? Last Menstrual Period: ? Menstrual/Pregnanc y Status: ? Post ? Other: ? Additional clinical information: NL Paps ? HPVA - HPV testing requested if ASC-US on the current ThinPrep Pap test. ? SPECIMEN ADEQUACY ? Satisfactory for Evaluation ? - transformation zone component present ? GENERAL CATEGORIZATION ? Negative for Intraepithelial Lesion or Malignancy ? Document reviewed and electronically signed by: ? Lynan Andrew, [place](ASCP) ? Report Date: ??09/09/2008 14:10 ? End of Report ? JANETH CRUZ 09/05/2008 09/07/2008 Kristen Prater CNM PATHOLOGY ORDERABLES [facility] [address] [place] [address] documented in this encounter Visit Diagnoses Not on filedocumented in this encounter
--- OUTSIDE RECORDS SUMMARY | 2024-06-08 14:43 | XMS_ITS | Encounter Summary ---
Author Organization [facility] Address [address] [place] [address] Care Team Providers Care Sewage Plant Operator Name Role Phone Unavailable Primary Care Provider Unavailabl e Encounter Details Date Type Department Care Team (Late st Contact Info) Description 02/13/2004 7:54 EDT - 02/13/2004 11:59 EDT Hospital Encounter [facility] - Other [address] [place] [address] Kristen Llanes CNM [address] [place] [address] Discharge Disposition: Auto Discharge Social History Tobacco Use Types Packs/Day Years Used Date Smoking Tobacco: Never Assessed Sex and Gender Information Value Date Recorded Sex Assigned at Not on file Gender Identity Not on file Sexual Orientation Not on file documented as of this encounter Discharge Disposition Disposition Code Departure Means Destination Auto Discharge documented in this encounter Plan of Treatment Pending Results Name Type Priority Associated Diagnoses Date /Time CYTOPATHOLOGY Pathology Routine 09/18/2009 0:00 EST CYTOPATHOLOGY Pathology Routine 09/18/2009 0:00 EST Scheduled Orders Name Type Priority Associated Diagnoses Orde r Schedule CYTOPATHOLOGY Pathology Routine For medicat ions that can be administered at any time during the hospitalization for visit such as immunizations. for 1 Occurrences starting 09/19/2009 CYTOPATHOLOGY Pathology Routine For medicat ions that can be administered at any time during the hospitalization for visit such as immunizations. for 1 Occurrences starting 09/19/2009 documented as of this encounter Procedures Procedure Name Priority Date/Time Associated Diagnosis Comments CYTOPATHOLOGY Routine 09/18/2009 0:00 EST CYTOPATHOLOGY Routine 02/13/2004 0:00 EDT documented in this encounter Results * CYTOPATHOLOGY (09/18/2009 0:00 EST) Pathology Report: CYTOPATHOLOGY REPORT ? Reports generated via electronic interface contain original data; ? however they are lacking the format of the original report. ? Caution should be taken when reading/interpreti ng unformatted reports. ? Name: ? REBECA BUCKLEY ? Accession #: ? [id number] ? : ? 1985 (Age: 24) ??F ?Collect Date: ? 09/18/2009 ? Location: ? [facility] ? Receive Date: ? 09/19/2009 ? Provider: ?KRISTEN MOI CNM ? Copy to: ? Specimen/Source: ?Pap Test, Cervix/Endocervix, ThinPrep Imaging System ? with manual evaluation ? Last Menstrual Period: ? 11/28/09 ? Hormonal/Contracep tive Status: ? Intrauterine device: Mirena ? Other: ? HPVA - HPV testing requested if ASC-US on the current ThinPrep Pap test. ? SPECIMEN ADEQUACY ? Satisfactory for Evaluation ? - transformation zone component present ? GENERAL CATEGORIZATION ? Negative for Intraepithelial Lesion or Malignancy ? Document reviewed and electronically signed by: ? Gerry Conrad, CT(ASCP) ? Report Date: ??09/20/2009 11:21 ? End of Report ? JANETH CRUZ 09/18/2009 09/19/2009 Kristen Llanes [place] PATHOLOGY ORDERABLES [facility] [address] [place] [address] * CYTOPATHOLOGY (02/13/2004 0:00 EDT) Pathologist [facility] Pathology Report: CYTOPATHOLOGY REPORT Reports generated via electronic interface contain original data; however they are lacking the format of the original report. Caution should be taken when reading/interpreti ng unformatted reports. Name: ? REBECA BUCKLEY ? Accession #: ? [id number] : ? 1985 (Age: 18) ??F ?Collect Date: ? 02/13/2004 Location: ? [facility] ? Receive Date: ? 02/16/2004 Provider: ?KRISTEN LLANES CNM Copy to: ? Specimen/Source: ?ThinPrep Pap Test, Cervix/Endocervix Last Menstrual Period: ? 12/10/03 Menstrual/Pregnanc y Status: ? Other: ? HPVDX - HPV testing requested regardless of diagnosis on current ThinPrep Pap test. ? SPECIMEN ADEQUACY ? Satisfactory for Evaluation - transformation zone component absent GENERAL CATEGORIZATION ? Negative for Intraepithelial Lesion or Malignancy ? Document reviewed and electronically signed by: ? NICOLE Barrientos(ASCP) ? Report Date: ??02/23/2004 09:25 End of Report JANETH CRUZ 02/13/2004 02/16/2004 Kristen Llanes CNM PATHOLOGY ORDERABLES JANETH CRUZ [address] [place] [address] documented in this encounter Visit Diagnoses Not on filedocumented in this encounter
--- OUTSIDE RECORDS SUMMARY | 2024-06-08 14:43 | XMS_ITS | Encounter Summary ---
Author Organization [facility] Address [address] [place] [address] Care Team Providers Care Endoscopic Technician Name Role Phone Marcy Hines MD Primary Care Provider Encounter Details Date Type Department Care Team (Late st Contact Info) Description 11/14/2022 Lab Requisition [facility] Pathology & Laboratory Medicine - [address] [address] Outr Resulting Lab, Provider Social History Tobacco [...] Comments CHLAMYDIA/N. GONORRHOEAE AMPLIFIED NUCLEIC ACID Routine 11/14/2022 14:45 EST documented in this encounter Results * CHLAMYDIA/N. GONORRHOEAE AMPLIFIED RNA (11/14/2022 14:45 EST) Neisseria gonorrhoeae Result Negative Negative 11/15/2022 14:23 EST [facility] Chlamydia trachomatis Result Negative Negative 11/15/2022 14:23 EST [facility] Swab ENTIRE WALL OF CERVIX / Unknown 11/14/2022 14:45 EST 11/14/2022 22:31 EST Provider Outr Resulting Lab MICROBIOLOGY - GENERAL ORDERABLES [facility] [address] [place] [address] documented in this encounter Visit Diagnoses Not on filedocumented in this encounter Care Teams Endoscopic Technician Relationship Specialty Start Date End Date Marcy Hines MD PCP - General 03/03/12 documented as of this encounter
--- OUTSIDE RECORDS SUMMARY | 2024-06-08 14:43 | XMS_ITS | Encounter Summary ---
Author Organization [facility] Address [address] [place] [address] Care Team Providers Care Communications Analyst Name Role Phone Marcy Hines MD Primary Care Provider [phone] Encounter Details Date Type Department Care Team (Late st Contact Info) Description 10/24/2023 Lab Requisition [facility] Pathology & Laboratory Medicine - [address] [address] Outr Resulting Lab, Provider Social History Tobacco [...] Procedure Name Priority Date/Time Associated Diagnosis Comments QUANTIFERON MITOGEN (PERFORMABLE) Today 10/23/2023 13:50 EST QUANTIFERON TB2 (PERFORMABLE) Today 10/23/2023 13:50 EST QUANTIFERON TB1 (PERFORMABLE) Today 10/23/2023 13:50 EST QUANTIFERON NIL (PERFORMABLE) Today 10/23/2023 13:50 EST QUANTIFERON INTERPRETATION (PERFORMABLE) Today 10/23/2023 13:50 EST QUANTIFERON TB GOLD PLUS Routine 10/23/2023 13:50 EST documented in this encounter Results * QUANTIFERON INTERPRETATION (PERFORMABLE) (10/23/2023 13:50 EST) Quantiferon Interpretation Negative Negative 10/27/2023 13:22 EST [facility] Comment:No interferon-gamma response to M. tuberculosis antigens was detected. ??Infection with M. tuberculosis is unlikely. A single negative result does not exclude infection with M. tuberculosis. ??In patients at high risk for M. tuberculosis infection, a second test should be considered. TB1 Ag minus Nil 0.07 IU/ml 10/27/19 13:22 EST [facility] TB2 Ag minus Nil 0.10 IU/mL 10/27/19 13:22 EST [facility] Blood VENOUS BLOOD / Unknown 10/23/2023 13:50 EST 10/27/2023 13:19 EST Provider Outr Resulting Lab IMMUNOLOGY A ND SEROLOGY ORDERABLES Performing Organization Address [facility] de Phone Number [facility] [address] [place] [address] * QUANTIFERON MITOGEN (PERFORMABLE) (10/23/2023 13:50 EST) Blood VENOUS BLOOD / Unknown 10/23/2023 13:50 EST 10/24/2023 17:09 EST Provider Outr Resulting Lab IMMUNOLOGY A ND SEROLOGY ORDERABLES Performing Organization Address [facility] Co de Phone Number [facility] [address] [place] [address] * QUANTIFERON TB2 (PERFORMABLE) (10/23/2023 13:50 EST) Blood VENOUS BLOOD / Unknown 10/23/2023 13:50 EST 10/24/2023 16:58 EST Provider Outr Resulting Lab IMMUNOLOGY A ND SEROLOGY ORDERABLES Performing Organization Address [facility] Co de Phone Number [facility] [address] [place] [address] * QUANTIFERON TB1 (PERFORMABLE) (10/23/2023 13:50 EST) Blood VENOUS BLOOD / Unknown 10/23/2023 13:50 EST 10/24/2023 17:09 EST Provider Outr Resulting Lab IMMUNOLOGY A ND SEROLOGY ORDERABLES Performing Organization Address [facility] de Phone Number [facility] [address] [place] [address] * QUANTIFERON NIL (PERFORMABLE) (10/23/2023 13:50 EST) Blood VENOUS BLOOD / Unknown 10/23/2023 13:50 EST 10/24/2023 17:09 EST Provider Outr Resulting Lab IMMUNOLOGY A ND SEROLOGY ORDERABLES Performing Organization Address [facility] de Phone Number [facility] [address] [place] [address] documented in this encounter Visit Diagnoses Not on filedocumented in this encounter Care Teams Communications Analyst Relationship Specialty Start Date End Date Marcy Hines MD PCP - General 03/03/12 documented as of this encounter
--- OUTSIDE RECORDS SUMMARY | 2024-06-08 14:43 | XMS_ITS | Encounter Summary ---
Author Organization [facility] Address [address] [place] [address] Care Team Providers Care Cream Tester Name Role Phone Marcy Hines MD Primary Care Provider [phone] Encounter Details Date Type Department Care Team (Late st Contact Info) Description 09/19/2021 Lab Requisition [facility] Pathology & Laboratory Medicine - [address] [address] Outr Resulting Lab, Provider Social History Tobacco [...] Date/Time Associated Diagnosis Comments SYPHILIS SEROLOGY Routine 09/19/2021 10: 05 EST documented in this encounter Results * SYPHILIS SEROLOGY (09/19/2021 10:05 EST) Syphilis Serology Negative Negative 09/20/2021 10:44 EST [facility] Blood VENOUS BLOOD / Unknown 09/19/2021 10:05 EST 09/19/2021 20:49 EST Provider Outr Resulting Lab IMMUNOLOGY A ND SEROLOGY ORDERABLES [facility] [address] [place] [address] documented in this encounter Visit Diagnoses Not on filedocumented in this encounter Care Teams Cream Tester Relationship Specialty Start Date End Date Marcy Hines MD PCP - General 03/03/12 documented as of this encounter
--- OUTSIDE RECORDS SUMMARY | 2024-06-08 14:43 | XMS_ITS | Encounter Summary ---
Author Organization [facility] Address [address] [place] [address] Care Team Providers Care Gear Cutting Machine Operator Name Role Phone Unavailable Primary Care Provider Unavailabl e Encounter Details Date Type Department Care Team (Late st Contact Info) Description 01/01/2008 Results Only [facility] - Maple [facility] [address] [place] [address] Unknown, Provider, Social History Tobacco Use Types Packs/Day Years Used Date Smoking Tobacco: Never Assessed Sex and Gender Information Value Date Recorded Sex Assigned at Not on file Gender Identity Not on file Sexual Orientation Not on file documented as of this encounter Plan of Treatment Not on file documented as of this encounter Procedures Procedure Name Priority Date/Time Associated Diagnosis Comments RUBELLA IGG ANTIBODY Routine 01/01/2008 14:35 EDT HEPATITIS B SURFACE ANTIGEN Routine 01/01/2008 14:35 EDT SYPHILIS SERO (RPR) Routine 01/01/2008 1 4:35 EDT documented in this encounter Results * RUBELLA IGG ANTIBODY (01/01/2008 14:35 EDT) Rubella IgG Ab Antibody detected Assayed utilizing the [facility] Immulite 2500. Values may vary with other methods. [facility] 01/01/2008 14:3 5 EDT 01/01/2008 20:55 EDT Provider Unknown CHEMISTRY & BLOOD GA S ORDERABLES [facility] [address] [place] [address] * SYPHILIS SERO (RPR) (01/01/2008 14:35 EDT) Syphilis Sero (RPR) NONREACT. NR Dils [facility] 01/01/2008 14:3 5 EDT 01/01/2008 20:55 EDT Provider Unknown IMMUNOLOGY AND SEROL OGY ORDERABLES Performing Organization Address [facility] Co de Phone Number [facility] [address] [place] [address] * HEPATITIS B SURFACE ANTIGEN (01/01/2008 14:35 EDT) Hepatitis B Surface Ag Neg [facility] 01/01/2008 14:3 5 EDT 01/01/2008 20:55 EDT Provider Unknown CHEMISTRY & BLOOD GA S ORDERABLES Performing Organization Address [facility] Co de Phone Number [facility] [address] [place] [address] documented in this encounter Visit Diagnoses Not on filedocumented in this encounter
--- OUTSIDE RECORDS SUMMARY | 2024-06-08 14:43 | XMS_ITS | Encounter Summary ---
Author Organization [facility] Address [address] [place] [address] Care Team Providers Care Water Inspector Name Role Phone Marcy Hines MD Primary Care Provider Encounter Details Date Type Department Care Team (Late st Contact Info) Description 03/19/2023 Lab Requisition [facility] Pathology & Laboratory Medicine - [facility] [address] [place] [address] Outr Resulting Lab, Provider Social History Tobacco [...] Date/Time Associated Diagnosis Comments SYPHILIS SEROLOGY Routine 03/19/2023 9:45 EDT documented in this encounter Results * SYPHILIS SEROLOGY (03/19/2023 9:45 EDT) Syphilis Serology Negative Negative 03/20/2023 10:31 EDT [facility] Blood VENOUS BLOOD / Unknown 03/19/2023 9:45 EDT 03/19/2023 17:23 EDT Provider Outr Resulting Lab IMMUNOLOGY A ND SEROLOGY ORDERABLES [facility] [address] [place] [address] documented in this encounter Visit Diagnoses Not on filedocumented in this encounter Care Teams Water Inspector Relationship Specialty Start Date End Date Marcy Hines MD PCP - General 03/03/12 documented as of this encounter
--- OUTSIDE RECORDS SUMMARY | 2024-06-08 14:43 | XMS_ITS | Encounter Summary ---
Author Organization [facility] Address [address] [place] [address] Care Team Providers Care Solar Photovoltaic Designer Name Role Phone Marcy Hines MD Primary Care Provider [phone] Encounter Details Date Type Department Care Team (Late st Contact Info) Description 11/14/2022 Lab Requisition [facility] Pathology & Laboratory Medicine - [address] [address] Outr Resulting Lab, Provider Social History Tobacco [...] Procedure Name Priority Date/Time Associated Diagnosis Comments HSV (HERPES SIMPLEX VIRUS) MOLECULAR DETECTION, PCR Routine 11/14/2022 14:45 EST documented in this encounter Results * (ABNORMAL) HSV (HERPES SIMPLEX VIRUS) MOLECULAR DETECTION, PCR (11/14/2022 14:45 EST) Herpes Simplex Virus Molecular Detection 1, PCR Negative Negative 11/15/2022 12:12 EST [facility] Herpes Simplex Virus Molecular Detection 2, PCR Positive(A) Negative 11/15/2022 12:12 EST [facility] Swab ENTIRE VAGINA / Unknown 11/14/2022 14:45 EST 11/14/2022 22:28 EST Provider Outr Resulting Lab MICROBIOLOGY - GENERAL ORDERABLES [facility] [address] [place] [address] documented in this encounter Visit Diagnoses Not on filedocumented in this encounter Care Teams Solar Photovoltaic Designer Relationship Specialty Start Date End Date Marcy Hines MD PCP - General 03/03/12 documented as of this encounter
--- OUTSIDE RECORDS SUMMARY | 2024-06-08 14:43 | XMS_ITS | Encounter Summary ---
Author Organization [facility] Address [address] [place] [address] Care Team Providers Care Salesperson Books Name Role Phone Marcy Hines MD Primary Care Provider [phone] Encounter Details Date Type Department Care Team (Late st Contact Info) Description 02/21/2021 Lab Requisition [facility] Pathology & Laboratory Medicine - [address] [address] Outr Resulting Lab, Provider Social History Tobacco [...] Comments CHLAMYDIA/N. GONORRHOEAE AMPLIFIED NUCLEIC ACID Routine 02/21/2021 9:27 EDT documented in this encounter Results * CHLAMYDIA/N. GONORRHOEAE AMPLIFIED RNA (02/21/2021 9:27 EDT) Neisseria gonorrhoeae Result Negative Negative 02/22/2021 13:28 EDT [facility] Chlamydia trachomatis Result Negative Negative 02/22/2021 13:28 EDT [facility] Swab ENTIRE ENDOCERVIX / Unknown 02/21/2021 9:27 EDT 02/21/2021 21:07 EDT Provider Outr Resulting Lab MICROBIOLOGY - GENERAL ORDERABLES [facility] [address] [place] [address] documented in this encounter Visit Diagnoses Not on filedocumented in this encounter Care Teams Salesperson Books Relationship Specialty Start Date End Date Marcy Hines MD PCP - General 03/03/12 documented as of this encounter
--- OUTSIDE RECORDS SUMMARY | 2024-06-08 14:43 | XMS_ITS | Encounter Summary ---
Author Organization [facility] Address [address] [place] [address] Care Team Providers Care Weekend Anchor Name Role Phone Marcy Hines MD Primary Care Provider [phone] Encounter Details Date Type Department Care Team (Late st Contact Info) Description 03/19/2023 Lab Requisition [facility] Pathology & Laboratory Medicine - [address] [id number] Outr Resulting Lab, Provider Social History Tobacco [...] Name Priority Date/Time Associated Diagnosis Comments HEPATITIS B SURFACE ANTIGEN Routine 03/19/2023 9:45 EDT documented in this encounter Results * HEPATITIS B SURFACE ANTIGEN (03/19/2023 9:45 EDT) Hep B Surface Ag Negative Negative 03/20/2023 9:47 EDT [facility] Blood VENOUS BLOOD / Unknown 03/19/2023 9:45 EDT 03/19/2023 17:25 EDT Provider Outr Resulting Lab CHEMISTRY & BLOOD GAS ORDERABLES [facility] [address] [place] [address] documented in this encounter Visit Diagnoses Not on filedocumented in this encounter Care Teams Weekend Anchor Relationship Specialty Start Date End Date Marcy Hines MD PCP - General 03/03/12 documented as of this encounter
--- OUTSIDE RECORDS SUMMARY | 2024-06-08 14:43 | XMS_ITS | Encounter Summary ---
Author Organization [facility] Address [address] [place] [address] Care Team Providers Care Painter Decorator Name Role Phone Marcy Hines MD Primary Care Provider [phone] Encounter Details Date Type Department Care Team (Late st Contact Info) Description 09/19/2021 Lab Requisition [facility] Pathology & Laboratory Medicine - [address] [address] Outr Resulting Lab, Provider Social History Tobacco [...] Diagnosis Comments HEPATITIS B SURFACE ANTIGEN Routine 09/19/2021 10:05 EST documented in this encounter Results * HEPATITIS B SURFACE ANTIGEN (09/19/2021 10:05 EST) Hep B Surface Ag Negative Negative 09/20/2021 9:33 EST [facility] Blood VENOUS BLOOD / Unknown 09/19/2021 10:05 EST 09/19/2021 20:49 EST Provider Outr Resulting Lab CHEMISTRY & BLOOD GAS ORDERABLES [facility] [address] [place] [address] documented in this encounter Visit Diagnoses Not on filedocumented in this encounter Care Teams Painter Decorator Relationship Specialty Start Date End Date Marcy Hines MD PCP - General 03/03/12 documented as of this encounter
--- OUTSIDE RECORDS SUMMARY | 2024-06-08 14:43 | XMS_ITS | Encounter Summary ---
Author Organization [facility] Address [address] [place] [address] Care Team Providers Care Control Tower Operator Name Role Phone Marcy Hines MD Primary Care Provider [phone] Encounter Details Date Type Department Care Team (Latest Contact Info) Description 12/23/2020 Lab Requisition [facility] Pathology & Laboratory Medicine - [address] [address] Stella Bower CNM [address] [place] [address], [address] [place] [address] Encounter for screening for malignant neoplasm of cervix; Encounter for screening for human papillomavirus (HPV); Encounter for gynecological examination (general) (routine) without abnormal findings Social History Tobacco Use Types Packs/Day Years Used Date Smoking Tobacco: Never Assessed Sex and Gender Information Value Date Recorded Sex Assigned at Not on file Gender Identity Not on file Sexual Orientation Not on file documented as of this encounter Plan of Treatment Not on file documented as of this encounter Procedures Procedure Name Priority Date/Time Associated Diagnosis Comments PAP TEST Today 12/22/2020 11:09 EDT HPV DNA DETECTION WITH GENOTYPING, PCR Today 12/22/2020 11:09 EDT documented in this encounter Results * HUMAN PAPILLOMAVIRUS (HPV) DETECTION-HIGH RISK TYPES (12/22/2020 11:09 EDT) HPV other High Risk types, PCR Negative Negative 01/01/2021 16:59 EDT [facility] Comment:No E6 or E7 mRNA is detected from HPV types 16,18,31,33,35,39,45,51,52,56,58,59,66, and 68 by evaporator operator molasses mediated amplification. Papanicolaou smear specimen (specimen) CERVIX UTERI STRUCTURE / Unknown 12/22/2020 11:09 EDT 12/29/2020 8:25 EDT Stella Bower [facility] MICROBIOLOGY - GENE RAL ORDERABLES [facility] [address] [place] [address] * PAP TEST (12/22/2020 11:09 EDT) Specimens A. Cervix and/or Endocervix , ThinPrep Imaging System with Manual Evaluation 01/01/2021 16:59 EDT [facility] Specimen Adequacy Satisfactory for Evaluation - transformation zone component present 01/01/2021 16:59 EDT [facility] General Categorization Negative for intraepithelial lesion or malignancy 01/01/2021 16:59 EDT [facility] Attestation . 01/01/2021 16:59 T [facility] at 1659 Clinical History Clinical History, Signs, Symptoms, Chief Complaint, Pertaining to This Order: See below Hormone/Contracep tive Use?: Yes 01/01/2021 16:59 T [facility] HPV The result for the Human Papillomavirus (HPV) Detection-High Risk Types is Negative. No E6 or E7 mRNA is detected from HPV types 16,18,31,33,35,39 ,45,51,52,56,58,5 9,66, and 68 by evaporator operator molasses mediated amplification.Daya ting was performed on specimen [id number] and was resulted on 01/01/2021 1622 EDT by BELKIS, LAB INSTRUMENT RESULTS IN 01/01/2021 16:59 EDT [facility] Performing Lab [facility] 01/01/2021 16:59 EDT [facility] Scanned Images 01/01/2021 16:59 EDT [facility] Papanicolaou smear specimen (specimen) CERVIX UTERI STRUCTURE / Unknown 12/22/2020 11:09 EDT 12/25/2020 9:11 EDT Stella Bower [facility] PATHOLOGY ORDERABLE S [facility] [address] [place] [address] documented in this encounter Visit Diagnoses Diagnosis Encounter for screening for malignant neoplasm of cervix Screening for malignant neoplasm of the cervix Encounter for screening for human papillomavirus (HPV) Special screening examination for human papillomavirus (HPV) Encounter for gynecological examination (general) (routine) without abnormal findings documented in this encounter Care Teams Control Tower Operator Relationship Specialty Start Date End Date Marcy Hines MD PCP - General 03/03/12 documented as of this encounter
--- OUTSIDE RECORDS SUMMARY | 2024-06-08 14:43 | XMS_ITS | Encounter Summary ---
Author Organization [facility] Address [address] [place] [address] Care Team Providers Care Wash Helper Name Role Phone Marcy Hines MD Primary Care Provider [phone] Encounter Details Date Type Department Care Team (Late st Contact Info) Description 10/23/2023 Lab Requisition [facility] Pathology [place] [address] Outr Resulting Lab, Provider Social History Tobacco [...] Priority Date/Time Associated Diagnosis Comments HEPATITIS B CORE ANTIBODY (TOTAL) Routine 10/23/2023 13:50 EST HEPATITIS B SURFACE ANTIBODY Routine 10/23/2023 13:50 EST HEPATITIS B SURFACE ANTIGEN Routine 10/23/2023 13:50 EST documented in this encounter Results * HEPATITIS B SURFACE ANTIBODY (10/23/2023 13:50 EST) Hep B Surface Ab, Quantitative >1,000.0 See Note mIU/mL 10/24/2023 9:17 EST [facility] Comment: Reference Range for Hep B Surface Ab, Quant: Positive: >= 10.0 mIU/mL Negative: ??< 10.0 mIU/mL Patient is presumed to be immune to infection with Hepatitis B Virus. Hep B Surface Ab, Qualitative Positive See Note 10/24/2023 9:17 EST [facility] Comment: Reference Range for Hep B Surface Ab, Qual: Unvaccinated: ??Negative Vaccinated: ??Positive Blood VENOUS BLOOD / Unknown 10/23/2023 13:50 EST 10/23/2023 21:06 EST Provider Outr Resulting Lab CHEMISTRY & BLOOD GAS ORDERABLES [facility] [address] [place] [address] * HEPATITIS B CORE ANTIBODY (TOTAL) (10/23/2023 13:50 EST) Hepatitis B Core Ab, Total Negative Negative 10/24/2023 10:00 EST [facility] Blood VENOUS BLOOD / Unknown 10/23/2023 13:50 EST 10/23/2023 21:06 EST Provider Outr Resulting Lab CHEMISTRY & BLOOD GAS ORDERABLES Performing Organization Address City/[facility]/ZIP Co de Phone Number [facility] [address] [place] [address] * HEPATITIS B SURFACE ANTIGEN (10/23/2023 13:50 EST) Hep B Surface Ag Negative Negative 10/24/2023 9:20 EST [facility] Blood VENOUS BLOOD / Unknown 10/23/2023 13:50 EST 10/23/2023 21:06 EST Provider Outr Resulting Lab CHEMISTRY & BLOOD GAS ORDERABLES Performing Organization Address City/[facility]/ZIP Co de Phone Number [facility] [address] [place] [address] documented in this encounter Visit Diagnoses Not on filedocumented in this encounter Care Teams Wash Helper Relationship Specialty Start Date End Date Marcy Hines MD PCP - General 03/03/12 documented as of this encounter
--- OUTSIDE RECORDS SUMMARY | 2024-06-08 14:43 | XMS_ITS | Encounter Summary ---
Author Organization [facility] Address [address] [place] [address] Care Team Providers Care Picture Hanger Name Role Phone Marcy Hines MD Primary Care Provider [phone] Encounter Details Date Type Department Care Team (Late st Contact Info) Description 11/14/2022 Lab Requisition [facility] Pathology & Laboratory Medicine - [address] [address] Outr Resulting Lab, Provider Social History Tobacco [...] Diagnosis Comments HEPATITIS B SURFACE ANTIGEN Routine 11/14/2022 14:52 EST documented in this encounter Results * HEPATITIS B SURFACE ANTIGEN (11/14/2022 14:52 EST) Hep B Surface Ag Negative Negative 11/15/2022 9:42 EST [facility] Blood VENOUS BLOOD / Unknown 11/14/2022 14:52 EST 11/14/2022 22:09 EST Provider Outr Resulting Lab CHEMISTRY & BLOOD GAS ORDERABLES [facility] [address] [place] [address] documented in this encounter Visit Diagnoses Not on filedocumented in this encounter Care Teams Picture Hanger Relationship Specialty Start Date End Date Marcy Hines MD PCP - General 03/03/12 documented as of this encounter
--- OUTSIDE RECORDS SUMMARY | 2024-06-08 14:43 | XMS_ITS | Encounter Summary ---
Author Organization [facility] Address [address] [place] [address] Care Team Providers Care Athletic Agent Name Role Phone Unavailable Primary Care Provider Unavailabl e Encounter Details Date Type Department Care Team (Late st Contact Info) Description 09/20/2010 Results Only [facility] Laboratory Services - [facility] ([facility]) [address] [place], [place] [address] Kristen Prater CNM [address] [place] [address],[address] [place] [id number] Social History Tobacco Use Types Packs/Day Years Used Date Smoking Tobacco: Never Assessed Sex and Gender Information Value Date Recorded Sex Assigned at Not on file Gender Identity Not on file Sexual Orientation Not on file documented as of this encounter Plan of Treatment Not on file documented as of this encounter Procedures Procedure Name Priority Date/Time Associated Diagnosis Comments CYTOPATHOLOGY Routine 09/20/2010 0:00 EST documented in this encounter Results * CYTOPATHOLOGY (09/20/2010 0:00 EST) Pathology Report: CYTOPATHOLOGY REPORT ? Reports generated via electronic interface contain original data; ? however they are lacking the format of the original report. ? Caution should be taken when reading/interpreti ng unformatted reports. ? Name: ? REBECA BUCKLEY ? Accession #: ? [id number] ? : ? 1985 (Age: 25) ??F ?Collect Date: ? 09/20/2010 ? Location: ? [facility] ? Receive Date: ? 09/24/2010 ? Provider: ?KRISTEN PRATER CNM ? Copy to: ? Specimen/Source: ?Pap Test, Cervix/Endocervix, ThinPrep Imaging System ? with manual evaluation ? Last Menstrual Period: ? months ago ? Hormonal/Contracep tive Status: ? Intrauterine device: Mirena ? Previous Gynecologic Pathology: ? Yes: Hx abn in past-no treatment required ? SPECIMEN ADEQUACY ? Satisfactory for Evaluation ? - transformation zone component present ? GENERAL CATEGORIZATION ? Negative for Intraepithelial Lesion or Malignancy ? Document reviewed and electronically signed by: ? Venecia Verville,CT(ASCP) ? Report Date: ??09/26/2010 13:15 ? End of Report ? [facility] 09/20/2010 09/24/2010 Kristen Prater CNM PATHOLOGY ORDERABLES [facility] [address] [place] [address] documented in this encounter Visit Diagnoses Not on filedocumented in this encounter
--- OUTSIDE RECORDS SUMMARY | 2024-06-08 14:43 | XMS_ITS | Encounter Summary ---
Author Organization [facility] Address [address] [place] [address] Care Team Providers Care Stage Manager Name Role Phone Marcy Hines MD Primary Care Provider [phone] Encounter Details Date Type Department Care Team (Late st Contact Info) Description 11/14/2022 Lab Requisition [facility] Pathology & Laboratory Medicine - [address] [address] Outr Resulting Lab, Provider Social History Tobacco [...] REFLEX TO HCV RNA BY PCR Routine 11/14/2022 14:52 EST documented in this encounter Results * HEPATITIS C AB W REFLEX TO HCV RNA BY PCR (11/14/2022 14:52 EST) Hep C Antibody Negative Negative 11/15/2022 10:43 EST [facility] Blood VENOUS BLOOD / Unknown 11/14/2022 14:52 EST 11/14/2022 22:09 EST Provider Outr Resulting Lab CHEMISTRY & BLOOD GAS ORDERABLES [facility] [address] [place] [address] documented in this encounter Visit Diagnoses Not on filedocumented in this encounter Care Teams Stage Manager Relationship Specialty Start Date End Date Marcy Hines MD PCP - General 03/03/12 documented as of this encounter
--- OUTSIDE RECORDS SUMMARY | 2024-06-08 14:43 | XMS_ITS | Encounter Summary ---
Author Organization [facility] Address [address] [place] [address] Care Team Providers Care Cheese Production Supervisor Name Role Phone Unavailable Primary Care Provider Unavailabl e Encounter Details Date Type Department Care Team (Late st Contact Info) Description 12/02/2005 Results Only [facility] - Maple conversion [address] [place] [address] Natali Alcala, [address] [place], [place] [address] Social History Tobacco Use Types Packs/Day Years Used Date Smoking Tobacco: Never Assessed Sex and Gender Information Value Date Recorded Sex Assigned at Not on file Gender Identity Not on file Sexual Orientation Not on file documented as of this encounter Plan of Treatment Not on file documented as of this encounter Procedures Procedure Name Priority Date/Time Associated Diagnosis Comments CYTOPATHOLOGY Routine 12/02/2005 0:00 EST documented in this encounter Results * CYTOPATHOLOGY (12/02/2005 0:00 EST) Pathology Report: CYTOPATHOLOGY REPORT Reports generated via electronic interface contain original data; however they are lacking the format of the original report. Caution should be taken when reading/interpreti ng unformatted reports. Name: ? REBECA BUCKLEY ? Accession #: ? [id number] : ? 1985 (Age: 20) ??F ?Collect Date: ? 12/02/2005 Location: ? [facility] ? Receive Date: ? 12/03/2005 Provider: ?NATALI ALCALA CNM Copy to: ? Specimen/Source: ?ThinPrep Pap Test, Cervix/Endocervix, processed on [employer] ThinPrep Imaging System, with manual evaluation Last Menstrual Period: ? 11/19/05 Hormonal/Contracep tive Status: ? Yes: Seasonale Other: ? HPVA - HPV testing requested if ASC-US on the current ThinPrep Pap test. ? SPECIMEN ADEQUACY ? Satisfactory for Evaluation - transformation zone component present GENERAL CATEGORIZATION ? Negative for Intraepithelial Lesion or Malignancy ? Document reviewed and electronically signed by: ? Josefina Waters, SCT(ASCP) ? Report Date: ??12/05/2005 11:22 End of Report [facility] 12/02/2005 12/03/2005 Natali Alcala CNM PATHOLOGY ORDERABLES Performing Organization Address City/State/[facility] Co de Phone Number [facility] [address] [place] [address] documented in this encounter Visit Diagnoses Not on filedocumented in this encounter
--- OUTSIDE RECORDS SUMMARY | 2024-06-08 14:43 | XMS_ITS | Encounter Summary ---
Author Organization [facility] Address [address] [place] [address] Care Team Providers Care Commercial Account Executive Name Role Phone Marcy Hines MD Primary Care Provider [phone] Encounter Details Date Type Department Care Team (Late st Contact Info) Description 09/13/2019 Lab Requisition [facility] Pathology & Laboratory Medicine - [address] [address] Unknown, Provider, Social History Tobacco Use Types [...] Date/Time Associated Diagnosis Comments HEPATITIS B SURFACE ANTIBODY Routine 09/12/2019 14:00 EST documented in this encounter Results * HEPATITIS B SURFACE ANTIBODY (09/12/2019 14:00 EST) Hep B Surface Ab, Quantitative >1,000.0 See Note mIU/mL 09/14/2019 10:02 EST [facility] Comment: Reference Range for Hep B Surface Ab, Quant: Positive: >= 10.0 mIU/mL Negative: ??< 10.0 mIU/mL Patient is presumed to be immune to infection with Hepatitis B Virus. Hep B Surface Ab, Qualitative Positive See Note 09/14/2019 10:02 EST [facility] Comment: Reference Range for Hep B Surface Ab, Qual: Unvaccinated: ??Negative Vaccinated: ??Positive Blood VENOUS BLOOD / Unknown 09/12/2019 14:00 EST 09/13/2019 21:28 EST Provider Unknown CHEMISTRY & BLOOD GA S ORDERABLES [facility] [address] [place] [address] documented in this encounter Visit Diagnoses Not on filedocumented in this encounter Care Teams Commercial Account Executive Relationship Specialty Start Date End Date Marcy Hines MD PCP - General 03/03/12 documented as of this encounter
--- OUTSIDE RECORDS SUMMARY | 2024-06-08 14:43 | XMS_ITS | Encounter Summary ---
Author Organization [facility] Address [address] [place] [address] Care Team Providers Care Commercial Real Estate Assistant Name Role Phone Unavailable Primary Care Provider Unavailabl e Encounter Details Date Type Department Care Team (Late st Contact Info) Description 01/28/2008 Results Only [facility] - Maple conversion [address] [place] [address] Kristen Prater CNM [address] [place] [address],[address] [place] [id number] Social History Tobacco Use Types Packs/Day Years Used Date Smoking Tobacco: Never Assessed Sex and Gender Information Value Date Recorded Sex Assigned at Not on file Gender Identity Not on file Sexual Orientation Not on file documented as of this encounter Plan of Treatment Not on file documented as of this encounter Procedures Procedure Name Priority Date/Time Associated Diagnosis Comments CYTOPATHOLOGY Routine 01/28/2008 0:00 EDT documented in this encounter Results * CYTOPATHOLOGY (01/28/2008 0:00 EDT) Pathology Report: CYTOPATHOLOGY REPORT Reports generated via electronic interface contain original data; however they are lacking the format of the original report. Caution should be taken when reading/interpreti ng unformatted reports. Name: ? REBECA BUCKLEY ? Accession #: ? [id number] : ? 1985 (Age: 22) ??F ?Collect Date: ? 01/28/2008 Location: ? [facility] ? Receive Date: ? 01/29/2008 Provider: ?KRISTEN PRATER CNM Copy to: ? Specimen/Source: ?ThinPrep Pap Test, Cervix/Endocervix, processed on [employer] ThinPrep Imaging System, with manual evaluation Last Menstrual Period: ? 10/14/07 Menstrual/Pregnanc y Status: ? Other: ? HPVA - HPV testing requested if ASC-US on the current ThinPrep Pap test. ? SPECIMEN ADEQUACY ? Satisfactory for Evaluation - transformation zone component present GENERAL CATEGORIZATION ? Negative for Intraepithelial Lesion or Malignancy ? Document reviewed and electronically signed by: ? NICOLE Haider(ASCP) ? Report Date: ??02/01/2008 15:06 End of Report [facility] 01/28/2008 01/29/2008 Kristen Prater CNM PATHOLOGY ORDERABLES [facility] [address] [place] [address] documented in this encounter Visit Diagnoses Not on filedocumented in this encounter
--- OUTSIDE RECORDS SUMMARY | 2024-06-08 14:43 | XMS_ITS | Encounter Summary ---
Author Organization [facility] Address [address] [place] [address] Care Team Providers Care Chiropractic Doctor Name Role Phone Marcy Hines MD Primary Care Provider [phone] Encounter Details Date Type Department Care Team (Late st Contact Info) Description 10/23/2023 Lab Requisition [facility] Pathology & Laboratory Medicine - [address] [address] Outr Resulting Lab, Provider Social History Tobacco [...] Procedure Name Priority Date/Time Associated Diagnosis Comments MEASLES IGG AB Routine 10/23/2023 13:50 EST RUBELLA IGG ANTIBODY Routine 10/23/2023 13:50 EST VARICELLA IGG ANTIBODY Routine 10/23/2023 13:50 EST MUMPS ANTIBODY IGG Routine 10/23/2023 13 :50 EST documented in this encounter Results * MEASLES IGG AB (10/23/2023 13:50 EST) Measles IgG Ab Positive See Note 10/24/2023 10:40 EST [facility] Comment:Presence of detectab le measles virus IgG antibodies. Blood VENOUS BLOOD / Unknown 10/23/2023 13:50 EST 10/23/2023 21:05 EST Provider Outr Resulting Lab IMMUNOLOGY A ND SEROLOGY ORDERABLES Performing Organization Address [facility] de Phone Number [facility] [address] [place] [address] * VARICELLA IGG ANTIBODY (10/23/2023 13:50 EST) Varicella IgG Ab Positive See Note 10/24/2023 10:38 EST [facility] Comment:Presence of detectab le Varicella Zoster virus IgG antibodies. Blood VENOUS BLOOD / Unknown 10/23/2023 13:50 EST 10/23/2023 21:05 EST Provider Outr Resulting Lab IMMUNOLOGY A ND SEROLOGY ORDERABLES Performing Organization Address [facility] Phone Number [facility] [address] [place] [address] * MUMPS ANTIBODY IGG (10/23/2023 13:50 EST) Mumps Antibody IgG Positive See Note 10/24/2023 10:41 EST [facility] Comment:Presence of detectab le mumps virus IgG antibodies. Blood VENOUS BLOOD / Unknown 10/23/2023 13:50 EST 10/23/2023 21:05 EST Provider Outr Resulting Lab IMMUNOLOGY A ND SEROLOGY ORDERABLES Performing Organization Address [facility] Phone Number [facility] [address] [place] [address] * RUBELLA IGG ANTIBODY (10/23/2023 13:50 EST) Rubella IgG Ab Positive See Note 10/24/2023 10:43 EST [facility] Comment:Positive for IgG ant ibodies to Rubella virus. Blood VENOUS BLOOD / Unknown 10/23/2023 13:50 EST 10/23/2023 21:05 EST Provider Outr Resulting Lab CHEMISTRY & BLOOD GAS ORDERABLES [facility] [address] [place] [address] documented in this encounter Visit Diagnoses Not on filedocumented in this encounter Care Teams Chiropractic Doctor Relationship Specialty Start Date End Date Marcy Hines MD PCP - General 03/03/12 documented as of this encounter
--- OUTSIDE RECORDS SUMMARY | 2024-06-08 14:43 | XMS_ITS | Encounter Summary ---
Author Organization [facility] Address [address] [place] [address] Care Team Providers Care Chemicals Fermentation Operator Name Role Phone Marcy Hines MD Primary Care Provider [phone] Encounter Details Date Type Department Care Team (Late st Contact Info) Description 09/19/2021 Lab Requisition [facility] Pathology & Laboratory Medicine - [address] [address] Outr Resulting Lab, Provider Social History Tobacco [...] Comments CHLAMYDIA/N. GONORRHOEAE AMPLIFIED NUCLEIC ACID Routine 09/19/2021 11:45 EST documented in this encounter Results * CHLAMYDIA/N. GONORRHOEAE AMPLIFIED RNA (09/19/2021 11:45 EST) Neisseria gonorrhoeae Result Negative Negative 09/21/2021 10:10 EST [facility] Chlamydia trachomatis Result Negative Negative 09/21/2021 10:10 EST [facility] Swab ENTIRE VAGINA / Unknown 09/19/2021 11:45 EST 09/19/2021 21:33 EST Provider Outr Resulting Lab MICROBIOLOGY - GENERAL ORDERABLES [facility] [address] [place] [address] documented in this encounter Visit Diagnoses Not on filedocumented in this encounter Care Teams Chemicals Fermentation Operator Relationship Specialty Start Date End Date Marcy Hines MD PCP - General 03/03/12 documented as of this encounter
--- OUTSIDE RECORDS SUMMARY | 2024-06-08 14:43 | XMS_ITS | Encounter Summary ---
Author Organization [facility] Address [address] [place] [address] Care Team Providers Care Signalman Name Role Phone Marcy Hines MD Primary Care Provider [phone] Encounter Details Date Type Department Care Team (Late st Contact Info) Description 02/25/2023 Lab Requisition [facility] Pathology & Laboratory Medicine - [address] [address] Outr Resulting Lab, Provider Social History Tobacco [...] REFLEX TO HCV RNA BY PCR Routine 02/24/2023 8:40 EDT documented in this encounter Results * HEPATITIS C AB W REFLEX TO HCV RNA BY PCR (02/24/2023 8:40 EDT) Hep C Antibody Negative Negative 02/26/2023 9:49 EDT [facility] Blood VENOUS BLOOD / Unknown 02/24/2023 8:40 EDT 02/25/2023 17:26 EDT Provider Outr Resulting Lab CHEMISTRY & BLOOD GAS ORDERABLES [facility] [address] [place] [address] documented in this encounter Visit Diagnoses Not on filedocumented in this encounter Care Teams Signalman Relationship Specialty Start Date End Date Marcy Hines MD PCP - General 03/03/12 documented as of this encounter
--- OUTSIDE RECORDS SUMMARY | 2024-06-08 14:43 | XMS_ITS | Encounter Summary ---
Author Organization [facility] Address [address] [place] [address] Care Team Providers Care Clinical Sales Consultant Name Role Phone Marcy Hines MD Primary Care Provider [phone] Encounter Details Date Type Department Care Team (Late st Contact Info) Description 02/08/2015 Results Only [facility] [phone] Kristen Prater CNM [address] [place] [address],[address] [place] [address] Social History Tobacco Use Types Packs/Day Years [...] Diagnosis Comments PAP TEST- RESULT ONLY Routine 02/08/2015 0:00 EDT documented in this encounter Results * PAP TEST- RESULT ONLY (02/08/2015 0:00 EDT) Pathology Report: CYTOPATHOLOGY REPORT Reports generated via electronic interface contain original data; however they are lacking the format of the original report. Caution should be taken when reading/interpreti ng unformatted reports. Name: ? MARCIOREBECA ? Accession #: ? [id number] ? : ? 1985 (Age: 29) ??F ?Collect Date: ? 02/08/2015 ? Location: ? [facility] ? Receive Date: ? 02/14/2015 ? Provider: KRISTEN PRATER CNM Copy to: ? Final Report SPECIMEN ADEQUACY ? Satisfactory for Evaluation - transformation zone component present GENERAL CATEGORIZATION ? Negative for Intraepithelial Lesion or Malignancy ?? Hormonal/Contracep tive status: Intrauterine device: Mirena Specimen/Source: ??Pap Test, Cervix/Endocervix, ThinPrep Imaging System with manual evaluation Document reviewed and electronically signed by: ? Gerry Conrad, NICOLE(ASCP) ? Report ??Date: 02/21/2015 11:50 HPV with Pap Test ? Date Ordered: ? 02/21/2015 ? Status: ?? Signed Out ?Date Complete: ? 02/23/2015 ? By: ??System Interface ? Date Reported: ? 02/23/2015 ? Interpretation RESULT: Negative for HPV. No E6 or E7 mRNA is detected from HPV types 16,18,31,33,35, 39,45,51,52,56,58, 59,66, and 68 by hire car driver mediated amplification. Comments Document reviewed and electronically signed by: ? System Interface ? Report date: 02/23/2015 By the signature above, the attending physician certifies that he/she has personally conducted a gross and/or microscopic examination of the described specimens and rendered or confirmed the above diagnosis. End of Report [facility] 02/08/2015 02/14/2015 Kristen Prater CNM PATHOLOGY ORDERABLES [facility] [address] [place] [address] documented in this encounter Visit Diagnoses Not on filedocumented in this encounter Care Teams Clinical Sales Consultant Relationship Specialty Start Date End Date Marcy Hines MD PCP - General 03/03/12 documented as of this encounter
--- OUTSIDE RECORDS SUMMARY | 2024-06-08 14:43 | XMS_ITS | Encounter Summary ---
Author Organization [facility] Address [address] [place] [address] Care Team Providers Care Soldering Machine Operator Helper Name Role Phone Marcy Hines MD Primary Care Provider [phone] Encounter Details Date Type Department Care Team (Late st Contact Info) Description 09/19/2021 Lab Requisition [facility] Pathology & Laboratory Medicine - [address] [phone] Outr Resulting Lab, Provider Social History Tobacco [...] 1/2 ANTIGEN AND ANTIBODY, 4TH GENERATION Routine 09/19/2021 10:05 EST documented in this encounter Results * HIV 1/2 ANTIGEN AND ANTIBODY, 4TH GENERATION (09/19/2021 10:05 EST) HIV 1 and 2 Antibody/p24 Antigen, 4th Generation Negative Negative 09/20/2021 10:08 EST [facility] Comment:If acute HIV-1 infec tion is suspected in a high risk patient, submit plasma specimen for HIV-1 RNA quantitation test. Blood VENOUS BLOOD / Unknown 09/19/2021 10:05 EST 09/19/2021 20:49 EST Narrative [facility] - 09/20/2021 10:08 EST Fourth Generation assay performed on the [employer] XPT. Provider Outr Resulting Lab IMMUNOLOGY A ND SEROLOGY ORDERABLES [facility] [address] [place] [address] documented in this encounter Visit Diagnoses Not on filedocumented in this encounter Care Teams Soldering Machine Operator Helper Relationship Specialty Start Date End Date Marcy Hines MD PCP - General 03/03/12 documented as of this encounter
--- OUTSIDE RECORDS SUMMARY | 2024-06-08 14:43 | XMS_ITS | Encounter Summary ---
Author Organization [facility] Address [address] [place] [address] Care Team Providers Care Engineering Librarian Name Role Phone Unavailable Primary Care Provider Unavailabl e Encounter Details Date Type Department Care Team (Late st Contact Info) Description 01/14/2007 Results Only [facility] - Maple conversion [address] [place] [address] Patch, Jayne, CNM [address] [place] [address] Social History Tobacco Use Types Packs/Day Years Used Date Smoking Tobacco: Never Assessed Sex and Gender Information Value Date Recorded Sex Assigned at Not on file Gender Identity Not on file Sexual Orientation Not on file documented as of this encounter Plan of Treatment Not on file documented as of this encounter Procedures Procedure Name Priority Date/Time Associated Diagnosis Comments CYTOPATHOLOGY Routine 01/14/2007 0:00 EDT documented in this encounter Results * CYTOPATHOLOGY (01/14/2007 0:00 EDT) Pathology Report: CYTOPATHOLOGY REPORT Reports generated via electronic interface contain original data; however they are lacking the format of the original report. Caution should be taken when reading/interpreti ng unformatted reports. Name: ? MARCIOREBECA Lexa ? Accession #: ? [id number] : ? 1985 (Age: 21) ??F ?Collect Date: ? 01/14/2007 Location: ? [facility] ? Receive Date: ? 01/15/2007 Provider: ?JAYNE PATCH CNM Copy to: ? Specimen/Source: ?ThinPrep Pap Test, Cervix, processed on [employer] ThinPrep Imaging System, with manual evaluation Last Menstrual Period: ? 12/18/06 Hormonal/Contracep tive Status: ? Orthotricyclen Other: ? HPVA - HPV testing requested if ASC-US on the current ThinPrep Pap test. ? SPECIMEN ADEQUACY ? Satisfactory for Evaluation - transformation zone component present GENERAL CATEGORIZATION ? Negative for Intraepithelial Lesion or Malignancy ? Document reviewed and electronically signed by: ? NICOLE Nance(ASCP) ? Report Date: ??01/20/2007 10:45 End of Report [facility] 01/14/2007 01/15/2007 Jayne Patch CNM PATHOLOGY ORDERABLES Performing Organization Address City/State/[facility] Co de Phone Number [facility] [address] [place] [address] documented in this encounter Visit Diagnoses Not on filedocumented in this encounter
--- OUTSIDE RECORDS SUMMARY | 2024-06-08 14:43 | XMS_ITS | Encounter Summary ---
Author Organization [facility] Address [address] [place] [address] Care Team Providers Care Soldering Machine Feeder Name Role Phone Unavailable Primary Care Provider Unavailabl e Encounter Details Date Type Department Care Team (Late st Contact Info) Description 10/17/2008 Before PRISM Converted Visit ([facility]) [facility] - [address] [phone] Unknown, Provider, Social History Tobacco Use Types [...] Comments CHLAMYDIA/N. GONORRHOEAE AMPLIFIED NUCLEIC ACID Routine 10/17/2008 14:06 EST documented in this encounter Results * CHLAMYDIA/GC AMPLIFIED (10/17/2008 14:06 EST) Specimen Description Cervix [facility] Result No Chlamydia trachomatis DNA detected by time stamp assembler mediated amplification. [facility] Result No Neisseria gonorrhoeae DNA detected by time stamp assembler mediated amplification. [facility] 10/17/2008 14:0 6 EST 10/17/2008 21:13 EST Provider Unknown MICROBIOLOGY - GENER AL ORDERABLES [facility] [address] [place] [address] documented in this encounter Visit Diagnoses Not on filedocumented in this encounter
--- OUTSIDE RECORDS SUMMARY | 2024-06-08 14:43 | XMS_ITS | Encounter Summary ---
Author Organization [facility] Address [address] [place] [address] Care Team Providers Care Culinary Director Name Role Phone Marcy Hines MD Primary Care Provider Encounter Details Date Type Department Care Team (Late st Contact Info) Description 01/17/2021 Lab Requisition [facility] Pathology & Laboratory Medicine - [address] [id number] Outr Resulting Lab, Provider Social History Tobacco [...] Comments CHLAMYDIA/N. GONORRHOEAE AMPLIFIED NUCLEIC ACID Routine 01/17/2021 9:01 EDT documented in this encounter Results * (ABNORMAL) CHLAMYDIA/N. GONORRHOEAE AMPLIFIED RNA (01/17/2021 9:01 EDT) Neisseria gonorrhoeae Result Negative Negative 01/18/2021 15:05 EDT [facility] Chlamydia trachomatis Result Positive(A) Negative 01/18/2021 15:05 EDT [facility] Swab ENTIRE ENDOCERVIX / Unknown 01/17/2021 9:01 EDT 01/17/2021 20:43 EDT Provider Outr Resulting Lab MICROBIOLOGY - GENERAL ORDERABLES [facility] [address] [place] [address] documented in this encounter Visit Diagnoses Not on filedocumented in this encounter Care Teams Culinary Director Relationship Specialty Start Date End Date Marcy Hines MD PCP - General 03/03/12 documented as of this encounter
[2024-06-08 15:22] LABS: ALT 20 U/L (14-59); AST 24 U/L (15-37); Albumin 3.8 g/dL (3.4-5.0); Alkaline Phosphatase 71 U/L (46-116); Anion Gap 8.8 mmol/L (3-11); BUN 10 mg/dL (7-18); Bilirubin, Total 0.53 mg/dL (0.2-1.0); CO2 24.2 mmol/L (21.0-32.0); CREATININE 0.8 mg/dL (0.55-1.02); Calcium 8.9 mg/dL (8.5-10.1); Calculated LDL 75 mg/dL (<100); Chloride 104 mmol/L (98-107); Cholesterol 141 mg/dL (<200); Estimated GFR 95.46 (mL/min/1.73m2); Glucose 84 mg/dL (74-106); HDL Cholesterol 46 mg/dL (40-60); Potassium 4.5 mmol/L (3.5-5.1); Sodium 137 mmol/L (136-145); TSH 3.44 uIU/Ml (0.36-3.74); Triglyceride 100 mg/dL (<150)
== END 2024-06-08 14:41 | disposition home or self-care (01) ==
LOC: NCHCN 14:40
PROVIDERS: PCP Nurse Practitioner Family; Visit Provider Nurse Practitioner Family
DX: I10 Essential (primary) hypertension (principal); Z13.1 Encounter for screening for diabetes mellitus; Z13.220 Encounter for screening for lipoid disorders; Z13.29 Encounter for screening for other suspected endocrine disorder
CPT/HCPCS: 80053; 80061; 85027; 83036; 84443

== ENCOUNTER 2025-05-26 12:12 | Outpatient (CLI) | payer OTHER, SELFPAY ==
--- NOTE | 2025-05-26 | DI.MAMMO_ITS ---
Exam(s) MAMMO SCREENING EXAM: MAMMO SCREENING CLINICAL HISTORY: SCREENING MAMMO Z12.31 TECHNIQUE: Mammograms were interpreted according to the usual protocol including computer analysis with CAD system, tomosynthesis and C-view imaging. COMPARISON: 2015 and 2023 FINDINGS: The breasts are composed of heterogeneously dense fibroglandular densities, Breast Density category C. No suspicious masses or suspicious microcalcifications are seen. No skin thickening or abnormal axillary lymph nodes are seen. There has been no significant change from prior exams. IMPRESSION: BI-RADS Category 1, Negative mammogram. Yearly screening mammography is recommended. Breast Density: Category C - The breasts are heterogeneously dense, which may obscure small masses. Breast density Category C or D implies that the patient has dense breast tissue. Dense breast tissue can make it harder to find cancer on a mammogram. Dense breast tissue is also associated with an increased risk of breast cancer. This information about the result of the mammogram report was provided to the patient to raise their awareness. Use this report when you speak with the patient about their risks for breast cancer, which includes their family history. At that time, you may recommend additional screening tests (Ultrasound or MRI) as these tests may add significant information. A negative radiographic report should not delay biopsy if a dominant or clinically suspicious mass is present. Up to ten percent of cancers are not identified on mammography. A negative report may reinforce clinical impression. Adenosis and dense breasts may obscure an underlying neoplasm. False positive reports average 6 to 10%.
== END 2025-05-26 12:32 ==
LOC: DI 12:12
PROVIDERS: PCP Nurse Practitioner Family; Visit Provider Nurse Practitioner Family
DX: Z12.31 Encounter for screening mammogram for malignant neoplasm of breast (principal); R92.333 Mammographic heterogeneous density, bilateral breasts; R92.323 Mammographic fibroglandular density, bilateral breasts
CPT/HCPCS: 77063; 77067

== ENCOUNTER 2025-09-20 12:55 | Outpatient (REF) | payer OTHER, SELFPAY | END 2025-09-20 12:56 | disposition home or self-care (01) | LOC: LBN 12:55 | PROVIDERS: PCP Nurse Practitioner Family; Visit Provider Nurse Practitioner Family | DX: N30.01 Acute cystitis with hematuria (principal) | CPT/HCPCS: 87077; 87086; 87186 ==